=== PATIENT | female | born 1990 | race Caucasian/White ===

== ENCOUNTER 2020-02-03 12:43 | Emergency (ER) | payer MEDICAID ==
[~2020-02-03] VITALS: Ht 154.9 cm; Wt 77.1 kg
[2020-02-03 12:51] VITALS: BP 120/72
--- NOTE | 2020-02-03 13:04 | NUR ---
PATIENT AMBULATED TO BED 2 WITH STEADY GAIT.
--- NOTE | 2020-02-03 13:05 | NUR ---
ADPT C/O CONSISTENT RT BREAST PAIN 06/20 WITH TWO PALPABLE LUMPS, ERYTHEMA AND WARMNESS ON OUTER QUADRANT OF THE RIGHT BREAT, AND NO MILK PRODUCED OF RIGHT BREAST FOR 2 DAYS. PT REPORTS SHE IS FOR ONE YEAR; SMALL WHITE DOTS ON THE RIGHT NIPPLE A FEW MONTHS AGO. A1. PT DENIES HAS HX OF MASTITIS. PT DENIES ANY FEVER, CP, SOB, OR COUGH AT THIS TIME; VSS; TENDERNESS ON RT BREAST ON PALPATION. PATIENT POSITIONED FOR COMFORT; HOB ELEVATED; BEDRAILS UP X1; BED DOWN. ER MD MADE AWARE OF PT STATUS.
--- NOTE | 2020-02-03 13:13 | NUR ---
DR. DELUNA IS EVALUATING AT BEDSIDE. I WAS PRESENTING WITH DR. DELUNA DURING THE ASSESSMENT.
--- NOTE | 2020-02-03 13:19 | NUR ---
HEARING THERAPY TEACHER IS AT BEDSIDE.
[2020-02-03 13:30] LABS: BASOPHILS # (AUTO) 0.1 K/uL (0.00-0.22); BASOPHILS % (AUTO) 0.6 % (0.0-2.0); EOSINOPHILS # (AUTO) 0.3 K/uL (0-0.4); EOSINOPHILS % (AUTO) 2.5 % (0.0-4.0); HEMATOCRIT 35.4 % (36-48); HEMOGLOBIN 11.8 g/dL (12.0-16.0); LYMPHOCYTES # (AUTO) 1.9 K/uL (2.5-16.5); LYMPHOCYTES % (AUTO) 18.6 % (20.5-51.1); MEAN CORPUSCULAR HEMOGLOBIN 28 pg (27-31); MEAN CORPUSCULAR HGB CONC 34 g/dL (33-37); MEAN CORPUSCULAR VOLUME 83.7 fL (80-94); MONOCYTES # (AUTO) 0.8 K/uL (0.8-1.0); MONOCYTES % (AUTO) 7.2 % (1.7-9.3); NEUTROPHILS # (AUTO) 7.4 K/uL (1.8-7.7); NEUTROPHILS % (AUTO) 71.1 % (42.2-75.2); PLATELET COUNT (AUTO) 203 K/uL (140-450); RED BLOOD CELL COUNT(AUTO) 4.23 MIL/uL (4.20-5.40); RED CELL DISTRIBUTION WIDTH 13.6 % (11.6-13.7); WHITE BLOOD COUNT (AUTO) 10.5 K/uL (4.8-10.8)
[2020-02-03 13:45] LABS: ANION GAP 11.1 (8-16); CARBON DIOXIDE 30.2 mmol/L (21-32); CREATININE 0.7 mg/dL (0.6-1.3); POTASSIUM 3.3 mmol/L (3.5-5.1)
[2020-02-03 15:06] VITALS: BP 118/74
== END 2020-02-03 15:06 | disposition home or self-care (01) ==
LOC: MED 12:43
DX: N61.0 Mastitis without abscess (principal)
CPT/HCPCS: 36415; 76641; 80048; 81025; 85025; 99284; Q0092